=== PATIENT | female | born 1970 | race Caucasian/White ===

== ENCOUNTER 2018-02-16 14:31 | Emergency (ER) | payer OTHER, MEDICAID ==
[~2018-02-16] VITALS: Ht 160 cm; Wt 54.9 kg
[2018-02-16 14:38] VITALS: Ht 160 cm; Wt 54.9 kg
[2018-02-16 20:09] VITALS: BP 119/76
== END 2018-02-16 20:11 ==
LOC: ED 14:31
DX: S09.8XXA Other specified injuries of head, initial encounter (principal); F15.10 Other stimulant abuse, uncomplicated; X58.XXXA Exposure to other specified factors, initial encounter; Y93.89 Activity, other specified; Y92.89 Other specified places as the place of occurrence of the external cause; Y99.8 Other external cause status
CPT/HCPCS: J2060; J3490; Q0092